=== PATIENT | male | born 1970 | race Caucasian/White ===

== ENCOUNTER → 2023-01-15 | Outpatient (CLI) | payer BC ==
--- NOTE | 2023-01-18 10:33 | MR ---
EXAMINATION TYPE: MR brain and iac wo/w con DATE OF EXAM: 01/15/2023 6:55 PM CLINICAL INDICATION:Male, 52 years old with history of R42 DIZZINESS AND GIDDINESS, Disequilibrium, D izziness and giddiness, Loss of hearing left ear COMPARISON: None TECHNIQUE: Multi planar, multi sequence imaging was performed through the brain. Specialized thin s equences were obtained through the internal auditory canals. Pre-and post gadolinium sequences were obtained. MR contrast: IV Contrast: 7.5 cc Gadavist FINDINGS: The yanez-white junctions, ventricular system, and cisterns appear unremarkable. Midline structures sh ow no abnormality. Diffusion-weighted imaging shows no evidence of restricted diffusion. The suscepti bility weighted images do not reveal any evidence for micro-hemorrhage. The bone marrow signal is within normal limits. Paranasal sinuses and mastoid air cells: Mild scattered paranasal sinus disease. Visualized orbits: Orbital contents are intact. After administration of gadolinium, no abnormal enhancement is seen. The right internal auditory canal sequences demonstrate no significant irregularity. The 7th cranial nerves, 8 cranial nerves, and cerebellar pontine angles appear unremarkable. There may be subtle enhancement of the left cranial nerves in the internal auditory canal compared to the contralateral side series 1201 image 8 and series 1301 image 9. There is no right-sided abnormal enhancement is seen within the internal auditory canals. Vascular loop: None. IMPRESSION: 1. Mild subtle enhancement along the left cranial cranial nerves in the internal auditory canal. Cor relate for neuritis. Consider short-term follow-up. 2. No evidence of intracranial mass nor acute/subacute CVA. 3. No evidence of right internal auditory canal abnormality.
== END | disposition home or self-care (01) ==
LOC: RADMRIMAIN 17:14
PROVIDERS: ATTEND Otolaryngology
DX: H91.92 Unspecified hearing loss, left ear (principal); R42 Dizziness and giddiness
CPT/HCPCS: 70553; A9585